=== PATIENT | female | born 1960 | race Caucasian/White ===

== ENCOUNTER 2017-12-30 11:55 | Outpatient (CLI) | payer OTHER, SELFPAY ==
--- NOTE | 2017-12-30 12:07 | DI.REPORT_ITS ---
SYMPTOMS/DIAGNOSIS: UPPER BACK PAIN, M54.9 THORACIC SPINE: Comparison is made with chest x-ray dated . There is no evidence of compression fractures. There are mild degenerative disc changes in the mid to lower thoracic spine. No gross lytic or blastic lesion is seen. The heart size is normal. The visualized portions of the lungs appear clear. IMPRESSION: Mild degenerative changes. No acute abnormality.
== END 2017-12-30 11:56 ==
PROVIDERS: PCP Nurse Practitioner Family; Visit Provider Nurse Practitioner
DX: M54.6 Pain in thoracic spine (principal); M47.814 Spondylosis without myelopathy or radiculopathy, thoracic region
CPT/HCPCS: 72072

== ENCOUNTER 2018-02-15 19:00 | Emergency (ER) | payer OTHER, SELFPAY ==
[2018-02-15 19:06] VITALS: BP 146/71; PULSE 81; RESP 15; TEMP 36.5; O2SAT 94
[2018-02-15] MEDS: Lidocaine 5% Patch 1 PATCH TP (19:45)
[2018-02-15] MEDS: Ketorolac 30 MG/ML VIAL IVP (19:50)
--- NOTE | 2018-02-15 20:04 | ED.GENADUL_ITS ---
Discharge Plan Disposition Patient Disposition: HOME Condition: Improving Discharge Details Chief Complaint: Orthopedic Clinical Impression: Sciatica, right side Primary Care Provider: Iman Petersen ED Provider: Yuriy Villafuerte Home Meds and New Rx's Prescriptions: New cyclobenzaprine 10 mg tablet 10 mg PO TID Qty: 15 RF: 0 ibuprofen [IBU] 600 mg tablet 600 mg PO QID PRN (Reason: pain) Qty: 14 RF: 0 Continue epinephrine 0.3 MG/0.3 ML auto-injector 0.3 mg IM PRN PRNRF: 0 sumatriptan succinate 100 MG tablet 100 mg PO ONCE Qty: 9 RF: 6 clonazepam 1 MG tablet 1 mg PO HS Qty: 30 RF: 0 propranolol 80 MG capsule,extended release 24 hr 80 mg PO DAILY Qty: 30 RF: 6 magnesium oxide 400 MG capsule 400 mg PO HS Qty: 90 RF: 3 estradiol 1 MG tablet 1 mg PO BID RF: 0 spironolactone 25 MG tablet 100 mg PO DAILY RF: 0 lamotrigine [Lamictal] 25 MG tablet 50 mg PO BID RF: 0 omeprazole 40 MG capsule,delayed release(DR/EC) 40 mg PO DAILY RF: 0 fluoxetine 20 MG capsule 20 mg PO DAILY RF: 0 Discharge Instructions Instructions: Sciatica (ED) Additional Instructions: Feel free to return to the emergency department for any new or worsening symptoms including fever associated with back pain, saddle anesthesia, changes in bowel or bladder function. Otherwise take your medication as prescribed and follow-up with your primary care provider in the next week if not improving. Stand Alone Forms: Physical Therapy Referral Referrals: Iman Petersen [Primary Care Provider] - 1 week (As needed for reassessment or if not improving) Medical Decision Making Patient presenting to the emergency department for chief complaint of right hip pain. Patient denies any known injury or trauma but does state a fall 2 weeks ago that seemed to injure her upper back and she saw her primary care provider who perform radiological imaging and said they noted some degenerative disc disease but otherwise was unremarkable. Over the past 2 days she has noted significant worsening of right hip pain with radiation down the front of her leg. She states that she is unable to get comfortable with any position. Patient does state previous hip surgery and is concerned something is wrong. Physical exam reveals positive sciatic notch tenderness on the right buttock, but no saddle anesthesia, no loss of reflexes, no loss of movement, no change in range of motion, no erythema or swelling noted. After discussion of diagnosis and plan of care patient is no further needs, questions, or concerns and states clear understanding to return to the emergency department for any worsening symptoms. Concern for sciatica versus possible hip injury that is occult from the fall. Doubt epidural abscess, cauda equina, or any other vascular injury. Plan to perform radiological imaging of right hip and pelvis, give diazepam, Toradol, and lidocaine patch. Pending results of radiological imaging patient was reassessed and did state some improvement in discomfort and I re-examined patient physically and found no new or worrisome findings. Patient did still have moderate amount of pain but not as severe so she was given 4 mg IV morphine. Review of radiological imaging shows right total hip arthroplasty with no signs of acute fracture or malalignment and no other findings noted. Given this we attempted to ambulate the patient. Patient was able to stand without assistance and pivot but did have some cramping of her right thigh. Patient states overall improvement in symptoms. Did discuss with patient typical regimen of pain medication, muscle relaxants, and steroids for sciatica. Patient was extremely hesitant to take any strong medications we agreed upon 600 mg of ibuprofen every 6 hours, Flexeril 10 mg every 8hours, and to hold on steroids. Patient was given a referral to physical therapy and encouraged to follow-up with her primary care provider as needed for reassessment or if she changes her mind about using steroids. After discussion of diagnosis and plan of care patient has no further needs, questions , or concerns and states clear understanding to return to the emergency department for any worsening symptoms. Of notation is that patient does receive a rash from amitriptyline but states that she has had Flexeril in the past and had no allergic reactions. Patient informed that there may be a cross-reactivity between these 2 medications but she states that she is okay with using the Flexeril. HPI General Mode of arrival: wheelchair . Date/Time Provider Initiated Documentation: 02/15/18 19:09 . Limitations to Documentation: no limitations . Information obtained by: patient and RN notes reviewed . History of Present Illness 57 year old F presents to the emergency department with the chief complaint of Right hip pain, described as severe, with intensity rated at 10. Quality is described as aching and sharp, and is localized to the back and pelvis. Patient extremity and distal. Patient started experiencing this day(s) (2) and it has been constant. No relieving factors improve symptom(s), Movement worsens symptoms . Patient notes no other symptoms.. Patient did receive the following treatments prior to arrival, none Related Data Home Medications Medication Instructions Recorded Confirmed estradiol 1 mg PO BID 09/21/12 02/15/18 spironolactone 100 mg PO DAILY 04/17/13 02/15/18 epinephrine 0.3 mg IM PRN PRN 12/30/13 02/15/18 clonazepam 1 mg PO HS #30 05/23/14 02/15/18 sumatriptan succinate 100 mg PO ONCE #9 tab-cap 05/23/14 02/15/18 magnesium oxide 400 mg PO HS #90 tab-cap 06/28/14 02/15/18 propranolol 80 mg PO DAILY #30 tab-cap 06/28/14 02/15/18 lamotrigine [Lamictal] 50 mg PO BID tab 10/08/15 02/15/18 fluoxetine 20 mg PO DAILY 09/26/17 02/15/18 omeprazole 40 mg PO DAILY 09/26/17 02/15/18 cyclobenzaprine 10 mg PO TID #15 tab 02/15/18 ibuprofen [IBU] 600 mg PO QID PRN #14 tab 02/15/18 Previous Rx's Medication Instructions Recorded lamotrigine [Lamictal] 50 mg PO BID tab 10/08/15 cyclobenzaprine 10 mg PO TID #15 tab 02/15/18 ibuprofen [IBU] 600 mg PO QID PRN #14 tab 02/15/18 Allergies Allergy/AdvReac Type Severity Reaction Status Date / Time amitriptyline Allergy Intermediate rash Unverified 02/15/18 19:20 amlodipine Allergy Intermediate edema Unverified 02/15/18 19:20 ciprofloxacin [From Cipro] Allergy Unverified 02/15/18 19:20 ciprofloxacin HCl Allergy Unverified 02/15/18 19:20 [From Cipro] sertraline HCl [From Zoloft] Allergy Unverified 02/15/18 19:20 cleaning products Allergy Uncoded 02/15/18 19:20 dyes Allergy Uncoded 02/15/18 19:20 IV Dye Allergy Uncoded 02/15/18 19:20 General Stated Complaint: Orthopedic YOLIS: 3 Review of Systems Constitutional Denies chills and Denies fever(s) Cardiovascular Denies chest pain Respiratory Denies cough Gastrointestinal Denies abdominal pain, Denies change in bowel habits, Denies diarrhea, Denies nausea and Denies vomiting Genitourinary Denies urinary incontinence Musculoskeletal Reports as per HPI and Reports back pain Neurologic Denies sensory deficit PFSH Social History Smoking/Tobacco Use Status: Former Tobacco Use Exam Const General: cooperative and no acute distress Orientation: alert, awake and oriented x3 Resp Effort & Inspection: normal respiratory effort Auscultation: clear to auscultation bilaterally Cardio Rate: regular rate Rhythm: regular rhythm Heart Sounds: S1 normal and S2 normal Back/Spine/Pelvis Thoracic/Lumbar Spine: pain with thoraco-lumbar ROM and thoraco-lumbar ROM limited Pelvis: no pain with anterior-posterior compression, no pain with lateral compression, buttock tenderness on the right and sciatic notch tenderness on the right Neuro General: alert, awake and oriented x3 DTR's: Rt Patellar: 2+, Lt Patellar: 2+, Rt Ankle: 2+ and Lt Ankle: 2+ Extrem Right lower extremity: hip/thigh Details: normal to inspection, knee Details: normal to inspection and lower leg Details: normal to inspection Course Vital Signs Temperature 36.5 C 02/15/18 19:06 Pulse 81 02/15/18 19:06 Respiratory Rate 15 02/15/18 19:06 Blood Pressure 146/71 H 02/15/18 19:06 Pulse Oximetry 94 L 02/15/18 19:06 Temperature 36.5 C 02/15/18 19:06 Temperature Source Temporal Artery Scan 02/15/18 19:06 Pulse 81 02/15/18 19:06 Respiratory Rate 15 02/15/18 19:06 Respiratory Effort 02/15/18 19:24 Blood Pressure 146/71 H 02/15/18 19:06 Blood Pressure Position Sitting 02/15/18 19:06 Pulse Oximetry 94 L 02/15/18 19:06 Oxygen Delivery Method Room Air 02/15/18 19:06 Oxygen Flow Rate 0 02/15/18 19:06 Pain Level 8 02/15/18 19:24 Comment 02/15/18 19:06
--- NOTE | 2018-02-15 20:39 | DI.RAD_ITS ---
SYMPTOMS/DIAGNOSIS: RIGHT HIP PAIN RIGHT HIP: Three views were obtained. There is total hip joint replacement in position on the right. The components appear well seated. No additional bony abnormalities seen.
--- NOTE | 2018-02-15 20:54 | DI.VRAD_ITS ---
EXAM: XR Right Hip With Pelvis When Performed, 2 or 3 Views CLINICAL HISTORY: 57 years old, female; Pain; Hip pain and other: Back; Right hip; Patient HX: No known trauma. Hip/back pain TECHNIQUE: Two or three views of the right hip, with pelvis when performed. COMPARISON: CR RT HIP COMPLETE AP PELVIS 08/20/2014 8:04 PM FINDINGS: Bones/joints: The osseous mineralization is normal. There is a right total hip arthroplasty, new since 08/20/2014. The hardware appears intact without surrounding lucency. There is no periarticular fracture. The left femoral head is within the acetabulum. The pubic symphysis and sacroiliac joints are intact. There are mild degenerative changes of the left hip, without significant change. No dislocation. Soft tissues: Unremarkable. IMPRESSION: Right total hip arthroplasty, new since 08/20/2014. No acute fracture or malalignment. Dictated and Authenticated by: Michelle Dorsey MD. Ordering:PABLO SHIPMAN MD
[2018-02-15 20:58] VITALS: BP 121/59; PULSE 72; RESP 15; O2SAT 98
[2018-02-15] MEDS: MORPHine 10 MG/ML VIAL 4 MG IVP (21:15)
== END 2018-02-15 22:24 | disposition home or self-care (01) ==
PROVIDERS: Emergency Provider Nurse Practitioner Family; PCP Nurse Practitioner Family
DX: M54.41 Lumbago with sciatica, right side (principal); Z96.641 Presence of right artificial hip joint
CPT/HCPCS: 96374; 96375; 99284; 73502; J1885; J2270

== ENCOUNTER 2018-02-20 10:27 | Emergency (ER) | payer OTHER, SELFPAY ==
[2018-02-20 10:32] VITALS: BP 140/87; PULSE 78; RESP 18; TEMP 37; O2SAT 98
--- NOTE | 2018-02-20 11:11 | DI.CT_ITS ---
SYMPTOM/DIAGNOSIS: SEVERE PAIN WITH RADIATION DOWN LEG, SEVERE RT HIP AND FEMUR PAIN, NUMBNESS LOWER LEG LUMBAR SPINE CT: Multiple contiguous axial images of the lumbar spine were obtained. Sagittal and coronal reformatted images were evaluated on the Siemens work station. There are five lumbar type vertebral bodies. Small osteophytes are seen at the endplates of L 2-3, L 3-4, L 4-5 and L 5-S 1. There is moderately severe disc space narrowing at L 4-5 with a vacuum disc. Endplate degenerative signal changes are present at this level. At L 2-3, there is a diffuse disc bulge. No focal disc herniation or significant central spinal canal stenosis is seen. At L 3-4, there is a diffuse disc bulge. There are degenerative changes of the facets with ligamentum flavum hypertrophy causing mild narrowing of the central spinal canal. The remaining disc levels show no significant central spinal canal stenosis. On the right, there is moderate narrowing of the neural foramen at L 4-5 and mild narrowing at L 3-4. On the left, mild narrowing of the neural foramen is seen at L 3-4 and L 4-5. IMPRESSION: Moderate degenerative changes in the lumbar spine as described above. No acute fracture or dislocation. The findings were discussed with the ER on the date of the examination. RIGHT HIP CT: Multiple contiguous axial images of the right hip were obtained. Sagittal and coronal reformatted images were evaluated on the Siemens work station. The patient has a right total hip replacement which causes artifact. It appears unremarkable. The bones are intact and normally mineralized. The soft tissues are unremarkable. IMPRESSION: Negative examination. The findings were discussed with the ER on the date of the examination.
[2018-02-20] MEDS: HYDROmorphone 2 MG/ML VIAL 0.5 MG IVP (12:08)
--- NOTE | 2018-02-20 14:06 | W.ED.GENAD ---
Discharge Plan Disposition Patient Disposition: HOME Condition: Stable Discharge Details Chief Complaint: Orthopedic Clinical Impression: Back pain with right-sided radiculopathy Primary Care Provider: Iman Petersen ED Provider: Yuriy Villafuerte Home Meds and New Rx's Prescriptions: New hydrocodone-acetaminophen 5-325 mg tablet 1 tab PO Q6H PRN (Reason: pain) Qty: 14 RF: 0 prednisone 20 mg tablet 40 mg PO DAILY Qty: 8 RF: 0 cyclobenzaprine 10 mg tablet 10 mg PO TID PRN (Reason: muscle spasm) Qty: 14 RF: 0 Continue epinephrine 0.3 MG/0.3 ML auto-injector 0.3 mg IM PRN PRNRF: 0 sumatriptan succinate 100 MG tablet 100 mg PO ONCE Qty: 9 RF: 6 clonazepam 1 MG tablet 1 mg PO HS Qty: 30 RF: 0 propranolol 80 MG capsule,extended release 24 hr 80 mg PO DAILY Qty: 30 RF: 6 magnesium oxide 400 MG capsule 400 mg PO HS Qty: 90 RF: 3 estradiol 1 MG tablet 1 mg PO BID RF: 0 spironolactone 25 MG tablet 100 mg PO DAILY RF: 0 lamotrigine [Lamictal] 25 MG tablet 50 mg PO BID RF: 0 ibuprofen [IBU] 600 mg tablet 600 mg PO QID PRN (Reason: pain) Qty: 14 RF: 0 omeprazole 40 MG capsule,delayed release(DR/EC) 40 mg PO DAILY RF: 0 fluoxetine 20 MG capsule 20 mg PO DAILY RF: 0 Changed cyclobenzaprine 10 mg tablet 10 mg PO TID PRN (Reason: muscle spasm) Qty: 15 RF: 0 Discharge Instructions Instructions: Sciatica (ED), Lumbar Radiculopathy (ED) Additional Instructions: If you start having saddle anesthesia, fevers, or change in bowel or bladder functions return immediately to the emergency department otherwise take your medication as prescribed and follow-up with your primary care provider as arranged on Friday Stand Alone Forms: Work Release Referrals: Iman Petersen [Primary Care Provider] - 02/23/18 11:30 am Discharge Data Discharge Date/Time-TO BE ENTERED AT DEPARTURE: 02/20/18 14:46 Medical Decision Making Patient presenting the emergency department for complaint of right leg and back pain. Patient was seen by myself and diagnosed with sciatica with radiculopathy approximately 5 days ago and discharged on ibuprofen and Flexeril. Patient states that she has not followed the recommendations I gave her to get out of bed and stretch her back and states that she is simply laid in bed all week. Patient denies any new symptoms but just states that symptoms are not improving. Physical exam is similar to previous episode where she has right-sided sciatic notch tenderness, positive straight leg raise on the right with minimal contralateral effect. No saddle anesthesia, no inability to move lower extremity, normal pulses and sensation distal to pain. Given that patient states that she cannot bear any weight due to the severe discomfort and radiological plain film imaging during last visit was unremarkable plan to perform CT imaging. Pending results patient given hydromorphone and diazepam After speaking with radiologist him states some degenerative changes but no signs of severe acute abnormality patient was reassessed. Patient states some improvement of discomfort after medications but then further states that she has not had a bowel movement since last visit. Patient consented to rectal examination and patient has appropriate rectal tone and post void residual of urine was 0 mL's per bladder scanner. Given this I do not feel the patient has cauda equina but is suffering from severe sciatica with radiculopathy. Patient was now agreeable to receiving stronger pain medication and was prescribed Vicodin along with encouraged to continue to use Flexeril as needed for muscle spasms and patient placed upon steroid burst of 40 mg daily for 5 days. Also contacted care management to get patient close follow-up for Friday with primary care office and patient states understand of emergent signs of back pain and to return to emergency department for any of those signs or symptoms. On discharge patient was able to ambulate with minimal assistance and had a cane that she was using but did not appear to need much assistance with minimal gait abnormality noted HPI General Mode of arrival: ambulatory. Date/Time Provider Initiated Documentation: 02/20/18 10:32. Limitations to Documentation: no limitations. Information obtained by: patient, RN notes reviewed and old records reviewed. History of Present Illness 57 year old F presents to the emergency department with the chief complaint of back and leg pain, described as severe and similar to prior episodes, with intensity rated at 10. Quality is described as sharp, and is localized to the back, right and lower extremity. Patient distal. Patient started experiencing this week(s) (1) and it has been constant. No relieving factors improve symptom(s), Movement worsens symptoms . Patient notes no other symptoms.. Patient did receive the following treatments prior to arrival, NSAID Related Data Home Medications Medication Instructions Recorded Confirmed estradiol 1 mg PO BID 09/21/12 02/20/18 spironolactone 100 mg PO DAILY 04/17/13 02/20/18 epinephrine 0.3 mg IM PRN PRN 12/30/13 02/20/18 clonazepam 1 mg PO HS #30 05/23/14 02/20/18 sumatriptan succinate 100 mg PO ONCE #9 tab-cap 05/23/14 02/20/18 magnesium oxide 400 mg PO HS #90 tab-cap 06/28/14 02/20/18 propranolol 80 mg PO DAILY #30 tab-cap 06/28/14 02/20/18 lamotrigine [Lamictal] 50 mg PO BID tab 10/08/15 02/20/18 fluoxetine 20 mg PO DAILY 09/26/17 02/20/18 omeprazole 40 mg PO DAILY 09/26/17 02/20/18 ibuprofen [IBU] 600 mg PO QID PRN #14 tab 02/15/18 02/20/18 cyclobenzaprine 10 mg PO TID PRN #14 tab 02/20/18 cyclobenzaprine 10 mg PO TID PRN #15 tab 02/20/18 02/20/18 hydrocodone-acetaminophen 1 tab PO Q6H PRN #14 tab 02/20/18 prednisone 40 mg PO DAILY #8 tab 02/20/18 Previous Rx's Medication Instructions Recorded lamotrigine [Lamictal] 50 mg PO BID tab 10/08/15 ibuprofen [IBU] 600 mg PO QID PRN #14 tab 02/15/18 cyclobenzaprine 10 mg PO TID PRN #14 tab 02/20/18 cyclobenzaprine 10 mg PO TID PRN #15 tab 02/20/18 hydrocodone-acetaminophen 1 tab PO Q6H PRN #14 tab 02/20/18 prednisone 40 mg PO DAILY #8 tab 02/20/18 Allergies Allergy/AdvReac Type Severity Reaction Status Date / Time amitriptyline Allergy Intermediate rash Unverified 02/20/18 10:45 amlodipine Allergy Intermediate edema Unverified 02/20/18 10:45 ciprofloxacin [From Cipro] Allergy Unverified 02/20/18 10:45 ciprofloxacin HCl Allergy Unverified 02/20/18 10:45 [From Cipro] sertraline HCl [From Zoloft] Allergy Unverified 02/20/18 10:45 cleaning products Allergy Uncoded 02/20/18 10:45 dyes Allergy Uncoded 02/20/18 10:45 IV Dye Allergy Uncoded 02/20/18 10:45 General Stated Complaint: Orthopedic YOLIS: 4 Review of Systems Constitutional Denies chills and Denies fever(s) Cardiovascular Denies chest pain, Denies syncope, Denies irregular heart rhythm and Denies dyspnea Respiratory Denies cough and Denies dyspnea Gastrointestinal Denies abdominal pain, Denies change in bowel habits and Reports constipation Genitourinary Denies urinary frequency, Denies difficulty voiding, Denies post void dribbling and Denies urinary incontinence Musculoskeletal Reports as per HPI, Reports back pain and Reports muscle cramps Neurologic Denies syncope Exam Const General: cooperative, acute distress moderate and not diaphoretic Orientation: alert, awake and oriented x3 Resp Effort & Inspection: normal respiratory effort Auscultation: clear to auscultation bilaterally Cardio Rate: regular rate Rhythm: regular rhythm Heart Sounds: S1 normal and S2 normal GI Rectal Exam - female: normal sphincter tone (Performed with RN mail carriers supervisor in room) Back/Spine/Pelvis Back: no CVA tenderness Thoracic/Lumbar Spine: lumbar spinal tenderness and straight leg raise positive (right) Pelvis: pain with anterior-posterior compression, pain with lateral compression, no buttock swelling, no unilateral elevation of iliac crest and sciatic notch tenderness on the right Sacrum: no ecchymosis, no swelling and no tenderness Coccyx: no swelling and no tenderness Neuro General: alert, awake, oriented x3, moves all extremities, normal light touch, pain and propioception and no focal motor deficits Cognition: normal cognition Speech: speech normal Motor: muscle tone normal throughout and strength 5/5 throughout DTR's: Rt Patellar: 2+, Lt Patellar: 2+, Rt Ankle: 2+ and Lt Ankle: 2+ Course Vital Signs Temperature 37 C 02/20/18 10:32 Pulse 78 02/20/18 10:32 Respiratory Rate 18 02/20/18 10:32 Blood Pressure 140/87 02/20/18 10:32 Pulse Oximetry 98 02/20/18 10:32 Temperature 37 C 02/20/18 10:32 Temperature Source Temporal Artery Scan 02/20/18 10:32 Pulse 78 02/20/18 10:32 Respiratory Rate 18 02/20/18 10:32 Respiratory Effort 02/20/18 10:43 Blood Pressure 140/87 02/20/18 10:32 Pulse Oximetry 98 02/20/18 10:32 Pain Level 9 02/20/18 12:08
--- NOTE | 2018-02-20 14:15 | PDOC.ERCMPRO ---
Care Management Progress Note 02/20/18-CM requested to get Pt f/u appt with Aubree Petersen Pt's PCP. Pt is scheduled for 02/23/18 at 11;30am. Pt was given appt. card.
[2018-02-20] MEDS: predniSONE 20 MG TAB 40 MG PO (14:25)
[2018-02-20 14:31] VITALS: BP 140/87; PULSE 78; RESP 18; TEMP 37; O2SAT 98
== END 2018-02-20 14:46 | disposition home or self-care (01) ==
PROVIDERS: Emergency Provider Nurse Practitioner Family; PCP Nurse Practitioner Family
DX: M54.16 Radiculopathy, lumbar region (principal); M54.41 Lumbago with sciatica, right side; Z91.19 Patient's noncompliance with other medical treatment and regimen
CPT/HCPCS: 96374; 96375; 99284; 72131; 73700; J7512

== ENCOUNTER 2018-03-05 01:16 | Outpatient (CLI) | payer OTHER, SELFPAY ==
--- NOTE | 2018-03-05 12:00 | DI.MRI_ITS ---
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 The study was carried out according to the usual protocol. Regions of increased signal are noted in the posterior body of T 12 and in the bodies of L 1 and L 2 and would be consistent with fatty rests are hemangiomata. Also there is increased signal in the endplates at L 5 - S 1 where there is diminished signal in a narrowed disc. At L 1 - 2 there is no evidence of disc pathology. There are mild facet joint degenerative and no evidence of spinal stenosis. At L 2 - 3 a left disc bulge is demonstrated. There are moderate facet joint degenerative changes and no evidence of significant spinal stenosis. At L 3 - 4 asymmetrical subligamentous disc protrusion is identified. There are moderate to severe facet joint degenerative changes with mild narrowing of the central spinal canal. Also there is bilateral foraminal stenosis most advanced on the right side. At L 4 - 5 disc osteophyte prominence is identified. There is severe narrowing of the L 4 - 5 disc where diminished signal is noted consistent with desiccation. There is no evidence of significant spinal stenosis at this level. At L 5 - S 1 there is diminished signal in the disc consistent with desiccation. No disc herniation is seen. Facet DJD is of moderate degree. There is no evidence of an abnormality involving the lower dorsal cord, conus or filum terminale. SUMMARY: Findings consistent with degenerative disc disease and DJD. There is evidence of spinal stenosis most advanced at L 3 - 4. Please see the above discussion.
== END 2018-03-05 01:36 ==
PROVIDERS: PCP Nurse Practitioner Family; Visit Provider Family Medicine
DX: G57.01 Lesion of sciatic nerve, right lower limb (principal); M51.17 Intervertebral disc disorders with radiculopathy, lumbosacral region; M47.817 Spondylosis without myelopathy or radiculopathy, lumbosacral region; M48.07 Spinal stenosis, lumbosacral region
CPT/HCPCS: 72148

== ENCOUNTER 2018-06-22 16:32 | Outpatient (REF) | payer OTHER, SELFPAY ==
[2018-06-22 19:04] LABS: HCT 42.1 % (36.0-46.0); HGB 13.8 g/dL (12.0-15.5); Mean Corp. HGB Concentration 32.8 g/dL (32.0-36.0); Mean Corpuscular Hemoglobin 30.3 pg (27.0-33.0); Mean Corpuscular Volume 92.3 fL (80-95); Mean Platelet Volume 11.2 fL (8.0-11.0); Platelet Count 308 x1000/uL (130-400); RBC 4.56 m/cumm (4.00-5.20); RBC Distribution Width 12.9 % (11.7-14.6); White Blood Cell Count 6.86 k/cumm (4.4-10.8)
[2018-06-22 19:06] LABS: Iron 74 ug/dL (50-175); Total Iron Binding Capacity 330 ug/dL (250-450); Transferrin Sat 22 % (15-50)
[2018-06-22 19:20] LABS: Ferritin 62 ng/mL (8-388)
[2018-06-24 10:21] LABS: Hepatitis A Antibody IgM Negative (NEGAT); Hepatitis B Core Antibody Negative (NEGAT); Hepatitis B surface Ag Negative (NEGAT); Hepatitis C Ab w Rflx HCV PCR Negative (NEGAT)
== END 2018-06-22 16:52 ==
LOC: NCHCN 16:32
PROVIDERS: PCP Nurse Practitioner Family; Visit Provider Nurse Practitioner Family
DX: Z13.0 Encounter for screening for diseases of the blood and blood-forming organs and certain disorders involving the immune mechanism (principal); Z11.59 Encounter for screening for other viral diseases
CPT/HCPCS: 85027; 86704; 86709; 86803; 87340; 82728; 83540; 83550

== ENCOUNTER 2018-07-09 14:01 | Outpatient (CLI) | payer OTHER, SELFPAY ==
--- NOTE | 2018-07-09 09:46 | DI.RAD_ITS ---
SYMPTOMS/DIAGNOSIS: RESTRICTIVE LUNG DISEASE, J98.4 PA AND LATERAL CHEST: Comparison 09/15/17. The heart is normal in size. The lungs are clear. The mediastinal structures and pleura appear intact. CONCLUSION: Normal chest.
== END 2018-07-09 14:21 ==
PROVIDERS: PCP Nurse Practitioner Family; Visit Provider Nurse Practitioner Family
DX: J98.4 Other disorders of lung (principal)
CPT/HCPCS: 71046

== ENCOUNTER 2018-08-12 13:58 | Outpatient (CLI) | payer OTHER, SELFPAY ==
--- NOTE | 2018-08-12 11:12 | DI.RAD_ITS ---
SYMPTOMS/DIAGNOSIS: RESTRICTIVE LUNG DISEASE SEVERE, COUGH, J98.4, R05 PA AND LATERAL CHEST: Comparison is made with [id number]. The heart size is normal. There are low lung volumes. No focal infiltrate, effusion or pulmonary edema is seen. There are no significant interstitial changes. No bony abnormalities are identified. IMPRESSION: Low lung volumes. No acute abnormality.
== END 2018-08-12 14:18 ==
PROVIDERS: PCP Nurse Practitioner Family; Visit Provider Nurse Practitioner Family
DX: R05 Cough (principal); J98.4 Other disorders of lung
CPT/HCPCS: 71046